=== PATIENT | male | born 1990 | race Caucasian/White ===

== ENCOUNTER 2018-04-21 07:56 | Emergency (ER) | payer OTHER ==
--- NOTE | 2018-04-21 08:03 | ED Physician Documentation ---
PD HPI OPHTHO - Stated complaint Stated Complaint: LT EYE REDNESS/PX - History obtained from History obtained from: Patient - History of Present Illness Timing - onset: Yesterday (evening after work. Noted some irritation left eye after taking out contacts. No noted chemical, UV, nor FB exposure. Had increased redness and some matting of eye this morning and noting light sensitivity.) Timing - duration: Days (1) Timing - details: Gradual onset, Still present Location: Left Quality / character: Burning, Aching Associated symptoms: Redness, Matting, Photophobia. No: FB sensation, Double vision, Decreased vision, Loss of vision, Headache Contributing factors: Wears contacts. No: Exposed to conjunctivitis, Recent URI, FB, UV light (welding etc) Similar symptoms before: Diagnosis (in the past, had had eye infection related to contact lens, healed without problems.) Recently seen: Not recently seen Review of Systems Constitutional: denies: Fever, Chills Eyes: reports: Photophobia, Discharge, Irritation (left eye). denies: Loss of vision, Decreased vision Nose: denies: Rhinorrhea / runny nose, Congestion Throat: denies: Sore throat Respiratory: denies: Cough : denies: Dysuria Neurologic: denies: Headache PD PAST MEDICAL HISTORY - Past Medical History Neuro: None Endocrine/Autoimmune: None Musculoskeletal: None - Present Medications Home Medications: Ambulatory Orders Medication Instructions Recorded Confirmed Gentamicin/Prednisol AC [Pred-G 1% 3 drops LEFTEYE Q3HR #5 ml 04/21/18 Eye Drops] - Allergies Allergies/Adverse Reactions: Allergies Allergy/AdvReac Type Severity Reaction Status Date / Time No Known Drug Allergies Allergy Verified 04/21/18 08:06 PD ED PE NORMAL - Vitals Vital signs reviewed: Yes - General General: Alert and oriented X 3, Well developed/nourished, Other (seems uncomfortable. Feels much better with eye drops, but still with light sensitivity.) - HEENT HEENT: PERRL (Light sensitive direct and consensual, decreased with numbing drops. ), EOMI, Ears normal, Moist mucous membranes, Pharynx benign PD ED PE EXPANDED - Eyes Eyes: Left eye, Injected conj/sclera, Corneal abrasion, Fluorescein uptake (superficial small linear uptake about 10 o'clock to iris. Not in visual axis. ), Anterior chambers clear, Normal fundi. No: Eyelid swelling, Eyelid erythema, Corneal FB, Corneal ulcer, Ant chamber cells/flare Results - Vitals Vitals: Vital Signs - 24 hr 04/21/18 08:04 Temperature 36.1 C L Heart Rate 63 Respiratory 16 Rate Blood Pressure 127/86 H O2 Saturation 97 Oxygen O2 Source Room air PD MEDICAL DECISION MAKING - ED course Complexity details: considered differential, d/w patient Departure - Departure Disposition: Home, Self Care Clinical Impression: Iritis of left eye Left corneal abrasion Qualifiers: Encounter type: initial encounter Qualified Code(s): S05.02XA - Injury of conjunctiva and corneal abrasion without foreign body, left eye, initial encounter Acute conjunctivitis, left eye Qualifiers: Acute conjunctivitis type: bacterial Qualified Code(s): H10.32 - Unspecified acute conjunctivitis, left eye Condition: Stable Record reviewed to determine appropriate education?: Yes Instructions: ED Conjunctivitis Bacterial Follow-Up: LACY Crockett [Provider Group] Prescriptions: Gentamicin/Prednisol AC [Pred-G 1% Eye Drops] 3 drops LEFTEYE Q3HR #5 ml Comments: No contacts in the eye for 3-4 days. Off work today due to the light sensitivity. Use the antibiotic and anti-inflammatory eyedrops every 3-4 hours while awake today and tomorrow. Try to have your eye rechecked in the next 1-2 days with your primary care you can use the numbing eyedrops short-term as long as you are not out side or doing activities where he could get something in your eye and if you do not use them beyond 1 day. Add Tylenol or ibuprofen if needed for pains. Forms: Activity restrictions Discharge Date/Time: 04/21/18 08:35
[2018-04-21 08:06] VITALS: BP 127/86
[2018-04-21] MEDS ORDERED: PROPARACAINE 0.5% OPHTH DROPS 15 ML LEFTEYE STA (08:08)
[2018-04-21] MEDS ORDERED: IBUPROFEN 600 MG TABLET PO STA (08:27)
== END 2018-04-21 08:35 | disposition home or self-care (01) ==
LOC: ED 07:56
DX: H20.9 Unspecified iridocyclitis (principal); S05.02XA Injury of conjunctiva and corneal abrasion without foreign body, left eye, initial encounter; X58.XXXA Exposure to other specified factors, initial encounter; H10.32 Unspecified acute conjunctivitis, left eye
CPT/HCPCS: 99283; A9270; J3490